=== PATIENT | female | born 1950 | race Caucasian/White ===

== ENCOUNTER → 2017-06-23 | Outpatient (CLI) | payer BC | LOC: MC.RAD 06:55 | DX: Z12.31 Encounter for screening mammogram for malignant neoplasm of breast (principal) ==

== ENCOUNTER → 2018-06-29 | Outpatient (CLI) | payer MEDICARE, BC | LOC: MC.RAD 09:39 | DX: Z12.31 Encounter for screening mammogram for malignant neoplasm of breast (principal) ==

== ENCOUNTER → 2019-07-19 | Outpatient (CLI) | payer MEDICARE, BC | LOC: MC.RAD 09:20 | DX: Z12.31 Encounter for screening mammogram for malignant neoplasm of breast (principal) ==

== ENCOUNTER → 2020-07-21 | Outpatient (CLI) | payer MEDICARE, BC | LOC: MC.RAD 10:00 | DX: Z12.31 Encounter for screening mammogram for malignant neoplasm of breast (principal) ==

== ENCOUNTER → 2021-09-03 | Outpatient (CLI) | payer MEDICARE, BC | LOC: MC.RAD 10:32 | DX: Z12.31 Encounter for screening mammogram for malignant neoplasm of breast (principal) ==

== ENCOUNTER 2021-10-01 10:52 | Outpatient (CLI) | payer MEDICARE, BC ==
[~2021-10-01] VITALS: Ht 154.9 cm; Wt 63.6 kg
[2021-10-01 12:14] VITALS: BP 156/69; PULSE 62; TEMP 97.7
[2021-10-01] MEDS ORDERED: COZAAR 50MG50 MG/TAB PO (15:35)
[2021-10-01] MEDS ORDERED: HYGROTON 2525 MG/TAB PO (15:36)
[2021-10-01] MEDS ORDERED: KLOR-CON M2020 MEQ PO (15:36)
[2021-10-01] MEDS ORDERED: SYNTHROID0.075 MG/T PO (15:37)
[2021-10-01] MEDS ORDERED: VITAMIN D31000 I1 PO (15:38)
[2021-10-01] MEDS ORDERED: CALCIUM 600 PLU1 TAB PO (15:38)
[2021-10-01] MEDS ORDERED: MULTI VITAMINS1 TAB PO (15:39)
[2021-10-01] MEDS ORDERED: GLUCOSAMINE & C1 CA2 PO (15:39)
[2021-10-01] MEDS ORDERED: TIMOLOL MALEATE5 M1 OP (15:40)
[2021-10-01] MEDS ORDERED: XALATAN EYE DROPS OU (15:41)
[2021-10-01] MEDS ORDERED: ALPHAGAN 15 ML15 ML OU (15:43)
[2021-10-01] MEDS ORDERED: TRUSOPT OCUMETE10 ML OU (15:44)
== END 2021-10-01 16:30 | disposition home or self-care (01) ==
LOC: EUO 10:52
DX: M81.0 Age-related osteoporosis without current pathological fracture (principal)
CPT/HCPCS: J3489

== ENCOUNTER → 2022-09-14 | Outpatient (CLI) | payer MEDICARE, BC ==
[~2022-09-14] MED LIST: ALPHAGAN 15 ML15 ML OU; CALCIUM 600 PLU1 TAB PO; COZAAR 50MG50 MG/TAB PO; GLUCOSAMINE & C1 CA2 PO; HYGROTON 2525 MG/TAB PO; KLOR-CON M2020 MEQ PO; MULTI VITAMINS1 TAB PO; SYNTHROID0.075 MG/T PO; TIMOLOL MALEATE5 M1 OP; TRUSOPT OCUMETE10 ML OU; VITAMIN D31000 I1 PO; XALATAN EYE DROPS OU
== END ==
LOC: MC.RAD 14:36
DX: Z12.31 Encounter for screening mammogram for malignant neoplasm of breast (principal)

== ENCOUNTER 2022-10-07 14:34 | Outpatient (CLI) | payer MEDICARE, BC ==
[~2022-10-07] VITALS: Ht 154.9 cm; Wt 64.1 kg
[2022-10-07 15:05] VITALS: BP 169/75; PULSE 81; TEMP 98.4
== END 2022-10-07 15:49 | disposition home or self-care (01) ==
LOC: EUO 14:34
DX: M81.0 Age-related osteoporosis without current pathological fracture (principal)
CPT/HCPCS: J3489

== ENCOUNTER → 2023-09-15 | Outpatient (CLI) | payer MEDICARE, BC | LOC: MC.RAD 08:00 | DX: Z12.31 Encounter for screening mammogram for malignant neoplasm of breast (principal) ==